=== PATIENT | female | born 1925 | race Caucasian/White ===

== ENCOUNTER → 2017-06-29 | Outpatient (CLI) | payer OTHER ==
[~2017-06-29] MED LIST: ACET1TAB84 PO; ATEN-173 PO; BRIM0.1S OPB; CALCIUM PO; CEPH500C2 PO; CHLO4TAB PO; CHOL100027 PO; LVNIS40 SQ; MULTCHW PO; NRV5 PO; POTA10CA28 PO; PSYL48.59 PO; [UNRECOGNIZED DRUG - OTHER] PO
[2017-06-29 19:01] LABS: BLOOD UREA NITROGEN 15 mg/dl (7-18); BUN/CREATININE RATIO 20.1 (10-20); CALCIUM 9.1 mg/dl (8.5-10.1); CARBON DIOXIDE 30 mmol/L (21-32); CHLORIDE 96 mmol/L (98-107); CREATININE 0.73 mg/dl (0.60-1.20); GLUCOSE 75 mg/dl (70-99); POTASSIUM 4.7 mmol/L (3.5-5.1); SODIUM 131 mmol/L (136-145)
--- NOTE | 2017-07-01 15:05 | CODING QUERY NO DIAGNOSIS ---
TREATMENT RENDERED WITHOUT A DIAGNOSIS To promote full compliance with coding requirements relating to patient care, physician participation is requested in all cases of lay out drafter uncertainty. Please assist us with providing a diagnosis/symptom for the test(s) below: A diagnosis/symptom was not documented on your Order. A valid diagnosis/symptom is required to bill all insurances. Please remember that we are unable to code a diagnosis of rule out, probable, possible, questionable, or suspected. Tests that require a diagnosis: DOS 06/29 * PRP DIAGNOSIS: Provider Signature: Date: Thank you Jailene [facility] Information Management Once completed, please kindly fax back to [phone] For questions please call [phone]
== END | disposition home or self-care (01) ==
LOC: C.LABSPEC 17:22
PROVIDERS: ATTEND Family Medicine
DX: D64.9 Anemia, unspecified (principal)